=== PATIENT | female | born 1990 | race Caucasian/White ===

== ENCOUNTER 2018-09-17 16:00 | Inpatient (IN) | payer OTHER, SELFPAY ==
[2018-09-17 16:20] VITALS: BMI 25.3
[2018-09-17] MEDS: Lactated Ringers 1,000 ML 50 ML IV (16:35)
[2018-09-17 17:03] LABS: Absolute Lymphocyte Count 1.76 X10^3/ul (0.83-4.51); Basophil# 0.01 X10^3/uL; Basophil% 0.1 % (0-1); Eosinophil# 0.17 X10^3/uL; Eosinophils% 1.5 % (0-5); Hematocrit 36.8 % (37-47); Hemoglobin 12.5 g/dl (12.0-15.0); Lymphocyte # 1.76 X10^3/ul (4.0); Lymphocyte % 15.3 % (19-41); Mean Corpuscular Hgb 31.2 pg (27.0-32.0); Mean Corpuscular Volume 91.8 fL (81-99); Mean Platelet Vol. 10.7 fl (6.2-12.0); Monocyte% 5.2 % (0-10); Neutrophil # 8.97 X10^3/uL (2.7-7.7); Neutrophil % 77.6 % (47-70); Platelet Count 209 K/mm3 (150-450); RBC Distribution Width CV 12.7 % (11.6-14.6); RBC Distribution Width SD 42.9 fl (35.1-43.9); Red Blood Count 4.01 M/mm3 (4.2-5.4); White Blood Count 11.5 K/mm3 (4.4-11.0)
[2018-09-17 17:05] LABS: International Normalized Ratio 0.9; Partial Thromboplast Time 27.5 Seconds (24.1-36.2); Prothrombin Time (Protime)PT. 12.1 SECONDS (11.7-14.9)
[2018-09-17 17:14] LABS: AST(SGOT) 21 U/L (15-37); Alanine Aminotransfer ALT/SGPT 20 U/L (13-56); Creatinine, Serum 0.66 mg/dL (0.55-1.02); EST Glomerular Filtration Rate 110 mL/min (>60); Est Glom Filt Rate - Afr Amer 134 mL/min (>60); Estimated Creatinine Clearance 107.63 ml/min; Uric Acid 4.6 mg/dL (2.6-6.0)
[2018-09-17 17:15] LABS: POSITIVE COUNT NO; POSITIVE DIFFERENTIAL NO; POSITIVE MORPHOLOGY NO
[2018-09-17 18:11] LABS: Protein, Urine (Random) 12.7 mg/dL (<11.9); Protein:Creat Ratio 115 mg/g CRE (0-200)
--- NOTE | 2018-09-17 19:26 | PCM.HP.OB ---
- Problem List (1) Elective induction of labor planned Status: Acute (2) History of depression Status: Acute (3) History of anxiety Status: Acute History Date of Admission: 09/17/18 Final GABRIELLA: 09/21/18 Gestational age: 39 Weeks and 3 Days History of this : This is a 28 year-old, G [1], P [0], at 39 weeks 3 days gestational age by LMP. Presented to office today with complaint of uterine contractions and discomfort. Also complaint of decreased movement. Cervical exam progressed from 4cm to 5cm since yesterday. Patient requesting elective IOL. Allergies cat dander Allergy (Verified 09/17/18 16:29) Itching dog dander Allergy (Verified 09/17/18 16:29) Itching horse dander Allergy (Verified 09/17/18 16:29) Itching tree nut Allergy (Verified 09/17/18 16:29) Itching Apple Allergy (Uncoded 09/17/18 16:29) Itching Carrot Allergy (Uncoded 09/17/18 16:29) Itching Legumes Allergy (Uncoded 09/17/18 16:29) Anaphylaxis Peanuts Allergy (Uncoded 09/17/18 16:29) Anaphylaxis Seasonal Allergies Allergy (Uncoded 09/17/18 16:29) Itching Soybeans Allergy (Uncoded 09/17/18 16:29) Itching Home Medications: Home Medications Albuterol Inhaler [Ventolin Hfa (SP)] 1 puff INHALATION Q4H PRN PRN 09/17/18 Epinephrine [Auvi-Q] 0.3 mg IJ 09/17/18 Omeprazole [Prilosec] 40 mg PO DAILY 09/17/18 Phenazopyridine [Pyridium] 100 mg PO TID 09/17/18 Smoking Status: Former smoker Alcohol: None Heart Tracin, moderate variability, accels, no decels TOCO: Irregular every 3-7 minutes, mild. History Past Pregnancies: Past Pregnancies Delivery Date Name GA/Weeks Outcome Route Weight Infant Gender Labor Length Anesthesia Delivery Location Provider FOB Labs: GBS negative 1hr GCT 88 normal CF negative HIV negative HBsAG negative Rubella Immune RPR negative A positive GC/CT negative Urine tox screen Expected Infant Delivery Method: Spontaneous Vaginal Review of Systems Constitutional: Denies: Chills, Fever, Weight Change HEENT: Denies: Head Aches, Sinus Congestion, Sinus Drainage Cardiovascular: Denies: Chest Pain, Palpitations Respiratory: Denies: Cough, Shortness of breath at rest, Sputum production Gastrointestinal: Reports: Abdominal Pain - Denies RUQ abdominal pain. Complaint of uterine contractions.. Denies: Nausea, Vomiting Genitourinary: Denies: Dysuria Neurological: Denies: Blurred vision, Focal weakness, Numbness, Tingling Psychiatric: Denies: Anxiety, Depression, Homicidal Ideations, Suicidal Ideations Physical Exam General: Alert, Oriented x3, Cooperative HEENT: Atraumatic, Normocephalic Cardiovascular: Regular rate, Regular Rhythm, No murmurs Lungs: Clear to auscultation, Normal air movement, No rhonchi, No wheeze Abdomen: Bowel Sounds Present, Non Tender, Gravid Extremities:: No edema Neurological: Deep Tendon Reflexes 2+/4 and Symmetrical. Negative for: Clonus Estimated gestational size: Appropriate for gestational size Presentation: Cephalic Cervix Dilation (cm): 5 - Cervical exam done in office today Station: -1 Effacement (%): 60 Assessment/Plan All Active Problems Elective induction of labor planned (Acute) History of depression (Acute) History of anxiety (Acute) This is a 28 year-old, G [1], P [0], at 39 weeks gestational age. A: Elective Induction of Labor at term Category 1 FHT P: 1) Admit to L&D. IV. Routine labs. Pre-e labs and urine p/c ratio due to mildly elevated BP 2) Unsure about pain management, would like to avoid epidural but ok if needed 3) Pitocin per policy 4) Continuous EFM 5) notified of patient status and admission.
[2018-09-17] MEDS: Oxytocin 30 units/NS 500 ml 30 UNITS/500 ML IV.SOLN IV (19:28)
[2018-09-17] MEDS: 0.9% Saline Lock 10 ML Syringe IV (23:36)
[2018-09-18] MEDS: Lactated Ringers 1,000 ML 50 ML IV ×2 (06:00→10:29)
[2018-09-18] MEDS: fentaNYL-bupivacaine (epidural) 100 ML BAG EPIDURAL (06:32)
--- NOTE | 2018-09-18 07:05 | PN.OBGYN_ITS ---
Patient Problems: Active and Suspected Problems Elective induction of labor planned (Acute) History of depression (Acute) History of anxiety (Acute) Subjective: Became increasingly painful with contractions after AROM. Requested epidural for pain management. at bedside. Objective: FHT 145, moderate variability, accel, no decel, Category 1 TOCO: every 2-3 minutes, strong Cervix: 7cm/90%/+1 AROM for clear fluid - Physical Exam Weight: 147 lb 7.828 oz Body Mass Index (BMI) 25.3 Intake and Output for Last 24 Hours 09/16/18 09/17/18 09/18/18 23:59 23:59 23:59 Intake Total 1676 / 1676 Output Total 900 / 900 Balance 776 / 776 Laboratory Tests Past 24 Hrs 09/17/18 09/17/18 09/17/18 16:35 16:35 16:35 WBC 11.5 H RBC 4.01 L Hgb 12.5 Hct 36.8 L MCV 91.8 MCH 31.2 MCHC 34.0 RDW 12.7 RDW Differential 42.9 Plt Count 209 MPV 10.7 Immature Gran % (Auto) 0.300 Neut % (Auto) 77.6 H Lymph % (Auto) 15.3 L [place] % (Auto) 5.2 Eos % (Auto) 1.5 Baso % (Auto) 0.1 Absolute Neuts (auto) 9.0 H Absolute Lymphs (auto) 1.76 Total Counted Not Reportable PT 12.1 INR 0.9 APTT 27.5 Creatinine Estim Creat Clear Calc Est GFR (MDRD) Af Amer Est GFR (MDRD) Non-Af Uric Acid AST ALT U Random Total Protein Urine Creatinine Protein/Creatinin Ratio Blood Type A POSITIVE Antibody Screen NEGATIVE 09/17/18 09/17/18 16:35 17:40 WBC RBC Hgb Hct MCV MCH MCHC RDW RDW Differential Plt Count MPV Immature Gran % (Auto) Neut % (Auto) Lymph % (Auto) [place] % (Auto) Eos % (Auto) Baso % (Auto) Absolute Neuts (auto) Absolute Lymphs (auto) Total Counted PT INR APTT Creatinine 0.66 Estim Creat Clear Calc 107.63 Est GFR (MDRD) Af Amer 134 Est GFR (MDRD) Non-Af 110 Uric Acid 4.6 AST 21 ALT 20 U Random Total Protein 12.7 H Urine Creatinine 110.00 Protein/Creatinin Ratio 115 Blood Type Antibody Screen Medical Necessity - Tobacco Use Smoking Status: Former smoker Assessment/Plan All Active Problems Elective induction of labor planned (Acute) History of depression (Acute) History of anxiety (Acute) A:Active Labor, progressing Category 1 FHT P: 1) Continue active management. Pitocin at 5mu's. Decreased from 10mu's prior to epidural placement. 2) Epidural for pain relief, effective 3) notified of patient status.
[2018-09-18] MEDS: fentaNYL 100 MCG/2 ML Ampul IV (10:29)
[2018-09-18] MEDS: Oxytocin 30 units/NS 500 ml 30 UNITS/500 ML IV.SOLN 334 UNITS IV (11:38)
--- NOTE | 2018-09-18 12:07 | PCM.OPRPT ---
Problem List (1) Elective induction of labor planned Status: Acute (2) History of depression Status: Acute (3) History of anxiety Status: Acute (4) Vaginal delivery Status: Acute (5) First degree perineal laceration Status: Acute Vaginal Delivery Maternal Presentation: Elective Induction Method of Induction: Pitocin Amniotic Membrane Rupture Type: Artificial Amniotic Fluid Description: Clear Final GABRIELLA: 09/21/18 Final GABRIELLA Source: LMP Gestational age: 39 Weeks and 4 Days Date of Procedure: 09/18/18 Pre-Operative Diagnosis: Elective Induction of Labor Post-Operative Diagnosis: at term Surgery/ Procedure Performed: Spontaneous Vaginal Delivery Type of Anesthesia: Epidural, Local with 1% lidocaine Description of Procedure: Progressed to complete with urge to push. of viable male over 1st degree perineal laceration. APGARS 8,9 with weight pending. head delivered and body forthcoming, CAN x1 and delivered through. Placed on maternal abdomen skin to skin. Spontaneous cry, mouth and nares suctioned for secretions. Pitocin started for active third stage management. Placenta delivered with maternal effort, intact, 3 vessel cord. Fundus massaged and firm. Perineum inspected and revealed 1st degree perineal laceration. Repaired with 3.0 vicryl and 1% Lidocaine, well approximated. Hemostasis achieved, EBL 300ml. Planning to breastfeed. Mom and baby stable. Family bonding well. notified of delivery. Presentation: Vertex Placental Delivery Description: Spontaneous Placenta Disposition: [facility] Cord Vessel Description: 3 Vessels Cord Entanglement: Around neck x 1, loose Estimated Blood Loss: 200 ml Infant A gender: Male Episiotomy Description: None Laceration: Perineal Extension/lac, 1st degree Medications given after delivery: IV Pitocin
[2018-09-18] MEDS: Oxytocin 30 units/NS 500 ml 30 UNITS/500 ML IV.SOLN 167 UNITS IV (12:08)
[2018-09-18] MEDS: Ibuprofen 600 MG Tablet PO (16:52)
[2018-09-18 17:44] VITALS: BP 122/72; PULSE 86; RESP 16; TEMP 37.3; O2SAT 99
[2018-09-18 20:48] VITALS: BP 134/77; PULSE 87; RESP 18; TEMP 36.7
[2018-09-19] MEDS: Senna/Docusate Sodium 1 Tablet PO (00:39)
[2018-09-19] MEDS: Ibuprofen 600 MG Tablet PO ×3 (00:39→21:57)
[2018-09-19 00:41] VITALS: BP 115/73; PULSE 81; RESP 18; TEMP 36.7
[2018-09-19 05:25] VITALS: BP 137/88; PULSE 83; RESP 18; TEMP 36.5
[2018-09-19 05:50] LABS: Hematocrit 34.5 % (37-47); Hemoglobin 11.5 g/dl (12.0-15.0); Mean Corp Hgb Conc 33.3 g/gl (32-36); Mean Corpuscular Hgb 30.9 pg (27.0-32.0); Mean Corpuscular Volume 92.7 fL (81-99); Mean Platelet Vol. 10.4 fl (6.2-12.0); Platelet Count 188 K/mm3 (150-450); RBC Distribution Width CV 12.9 % (11.6-14.6); RBC Distribution Width SD 43.7 fl (35.1-43.9); Red Blood Count 3.72 M/mm3 (4.2-5.4); White Blood Count 14.3 K/mm3 (4.4-11.0)
[2018-09-19 05:51] LABS: Scan Indicated on CBC? Y/N NO
--- NOTE | 2018-09-19 08:19 | PCM.PN.OB ---
Patient Problems: Active and Suspected Problems Elective induction of labor planned (Acute) History of depression (Acute) History of anxiety (Acute) Vaginal delivery (Acute) First degree perineal laceration (Acute) Subjective: Patient sitting up in bed, reporting no issues overnight. Denies HOLT, denies scotoma, denies dizziness. Patient reports mild tailbone pain but feels that heating pack to tailbone helps with her symptoms. Reports minimal issue with latching the baby - notes minimal nipple pain. Objective: VSS, Afebrile - see nurse's notes Nipples without cracks or blisters, no ecchymoses Abdomen NT x 4 quadrants, FF midline 2FB below umbilicus +2/4 reflexes in LE, no edema noted, negative calf tenderness to palpation scant rubra lochia, perineum well-approximated - Physical Exam General: Alert, Oriented x3, Cooperative HEENT: Atraumatic, Normocephalic Lungs: Normal air movement Cardiovascular: Regular rate, No murmurs Abdomen: Soft, Non Tender Extremities: No edema, Capillary Refill Less than 3 Seconds Skin: No rashes, No breakdown Musculoskeletal: No Tenderness to Palpation of Joints or Extremities Neurological: Cranial nerves II-XII grossly intact Psych/Mental Status: Normal Affect, Appropriate Vital Signs Temp Pulse Resp BP Pulse Ox 97.7 F L 83 18 137/88 H 99 09/19/18 05:25 09/19/18 05:25 09/19/18 05:25 09/19/18 05:25 09/18/18 17:44 Oxygen Delivery Method Room Air Weight: 147 lb 7.828 oz Body Mass Index (BMI) 25.3 Intake and Output for Last 24 Hours 09/17/18 09/18/18 09/19/18 23:59 23:59 23:59 Intake Total 4684 / 4684 Output Total 2650 / 2650 Balance 2033 / 2033 Laboratory Tests Past 24 Hrs 09/19/18 05:40 WBC 14.3 H RBC 3.72 L Hgb 11.5 L Hct 34.5 L MCV 92.7 MCH 30.9 MCHC 33.3 RDW 12.9 RDW Differential 43.7 Plt Count 188 MPV 10.4 Medical Necessity - Tobacco Use Smoking Status: Former smoker Assessment/Plan All Active Problems Elective induction of labor planned (Acute) History of depression (Acute) History of anxiety (Acute) Vaginal delivery (Acute) First degree perineal laceration (Acute) 28 y/o s/p , PPD #1, Normal PP Course P: 1) Continue , consultation today 2) Continue present orders 3) Anticipate discharge to home tomorrow Angeli REYES
[2018-09-19 08:36] VITALS: BP 132/86; PULSE 60; RESP 16; TEMP 36.4
[2018-09-19] MEDS: Pantoprazole Sodium 40 MG Tablet PO (08:57)
[2018-09-19 14:00] VITALS: BP 125/93; PULSE 60; RESP 16; TEMP 36.6
[2018-09-19] MEDS: Acetaminophen 500 MG Tablet 1000 MG PO (17:27)
[2018-09-19 17:28] VITALS: BP 128/82; PULSE 64; RESP 16; TEMP 36.4
[2018-09-19 20:10] VITALS: BP 128/83; PULSE 80; RESP 16; TEMP 36.6
[2018-09-20 01:43] VITALS: BP 132/86; PULSE 81; RESP 16; TEMP 36.8
[2018-09-20] MEDS: Pantoprazole Sodium 40 MG Tablet PO (08:20)
[2018-09-20 08:21] VITALS: BP 134/85; PULSE 81; RESP 18; TEMP 36.9; O2SAT 98
[2018-09-20] MEDS: Ibuprofen 600 MG Tablet PO (08:53)
--- NOTE | 2018-09-20 09:09 | DCINST_ITS ---
Discharge Diet: No Restrictions Discharge Activity: Return to Normal Activity, May not drive while taking narcotic pain medications., May Shower May resume sexual activity in: 4-6 weeks Additional Activity Instructions:: Nothing in the vagina for 4-6 weeks. You may return to work/school in 6 weeks. Call your doctor if your incision/area has: Continuous Slow Oozing, Sudden Increased Bleeding, Increased Pain/ Swelling, Increased Redness, Foul Smelling Discharge Call your doctor if you observe: Fever of 101 or Higher, Inability to urinate, Inability to have a bowel movement, Using more than one pad per hour Additional Instructions: If you experience any of the following, contact your healthcare provider. * Bleeding that soaks a pad every hour for 2 hours * Fever 100.4 or higher * Unrelieved incision or abdominal pain * Swelling, redness, discharge or bleeding from your incision or episiotomy site * Your incision begins to separate * Problems urinating (including inability to urinate or burning while urinating). * Visual changes * Severe headache * Flu-like symptoms * Pain or redness in one of both of your breasts * Pain, warmth, tenderness or swelling in your legs, especially the calf area * Frequent nausea and vomiting * Symptoms of depression or anxiety If you experience any of the following, call 911 or go to the nearest Emergency Room. * Chest pain * Problems breathing * Seizure activity * Partial or complete paralysis of a body part, slurred speech, weakness or drooping of the face, or a sudden inability to walk or hold your balance Allergies/Adverse Reactions: Allergies cat dander Allergy (Verified 09/17/18 16:29) Itching dog dander Allergy (Verified 09/17/18 16:29) Itching horse dander Allergy (Verified 09/17/18 16:29) Itching tree nut Allergy (Verified 09/17/18 16:29) Itching Apple Allergy (Uncoded 09/17/18 16:29) Itching Carrot Allergy (Uncoded 09/17/18 16:29) Itching Legumes Allergy (Uncoded 09/17/18 16:29) Anaphylaxis Peanuts Allergy (Uncoded 09/17/18 16:29) Anaphylaxis Seasonal Allergies Allergy (Uncoded 09/17/18 16:29) Itching Soybeans Allergy (Uncoded 09/17/18 16:29) Itching Medications to take at Discharge Albuterol Inhaler [Ventolin Hfa (SP)] 1 puff INHALATION Q4H PRN PRN 09/17/18 Epinephrine [Auvi-Q] 0.3 mg IJ 09/17/18 Omeprazole [Prilosec] 40 mg PO DAILY 09/17/18 Phenazopyridine [Pyridium] 100 mg PO TID 09/17/18 Please Follow Up With: Jackie Blount CNM When: Call to make an appointment with your provider in 2 weeks and 6 weeks . Primary Care Physician: Johanna Abreu,Out of [Primary Care Provider] - Test Results: Test results from this visit will be discussed in further detail at your follow- up appointment, if applicable. Proposed Discharge Date: 09/20/18
--- NOTE | 2018-09-20 09:17 | PN.OBGYN_ITS ---
Patient Problems: Active and Suspected Problems Elective induction of labor planned (Acute) History of depression (Acute) History of anxiety (Acute) Vaginal delivery (Acute) First degree perineal laceration (Acute) Subjective: Patient recently exited shower, reports no issues at this time. Nipples feeling slightly sore, reports that baby breastfeeds easier and more often on Rt. side than Lt. side. Patient reports some nipple soreness. She plans to see beauty consultant this morning and has been applying cool pads to nipples after feedings. Patient reports that bleeding has decreased, reports that her tailbone pain has almost completely resolved. Denies HOLT, scotoma or dizziness. She desires discharge to home today. Objective: VSS, Afebrile Nipples without blisters, a few small cracks on Rt>Lt nipple and mild erythema. Nipples bilaterally everted. Abdomen NT x 4 quadrants, FF midline 3FB below umbilicus +2/4 reflexes in LE, no edema noted, negative calf tenderness to palpation scant rubra lochia, perineum well-approximated - Physical Exam General: Alert, Oriented x3, Cooperative HEENT: Atraumatic, Normocephalic Neck: Supple Lungs: Normal air movement Cardiovascular: Regular rate, Regular Rhythm Abdomen: Soft, Non Tender Extremities: No edema, Capillary Refill Less than 3 Seconds Skin: No rashes, No breakdown Musculoskeletal: No Tenderness to Palpation of Joints or Extremities Neurological: Cranial nerves II-XII grossly intact, Deep Tendon Reflexes 2+/4 and Symmetrical Psych/Mental Status: Normal Affect, Appropriate Vital Signs Temp Pulse Resp BP Pulse Ox 98.5 F 81 18 134/85 H 98 09/20/18 08:21 09/20/18 08:21 09/20/18 08:21 09/20/18 08:21 09/20/18 08:21 Oxygen Delivery Method Room Air Weight: 147 lb 7.828 oz Body Mass Index (BMI) 25.3 Intake and Output for Last 24 Hours 09/18/18 09/19/18 09/20/18 23:59 23:59 23:59 Intake Total 4684 / 4684 1500 / 1500 Output Total 2650 / 2650 Balance 2033 / 2033 1500 / 1500 Medical Necessity - Tobacco Use Smoking Status: Former smoker Assessment/Plan All Active Problems Elective induction of labor planned (Acute) History of depression (Acute) History of anxiety (Acute) Vaginal delivery (Acute) First degree perineal laceration (Acute) 28 y/o s/p , PPD #2, Normal PP Course P: 1) Discharge patient to home 2) PP teaching and anticipatory PP guidance reviewed 3) Patient to follow-up as scheduled at 2 and 6 weeks PP at [facility] Angeli REYES
== END 2018-09-20 10:55 | disposition home or self-care (01) | DRG 807 ==
PROVIDERS: Advanced Practice Midwife; Admitting Provider Obstetrics & Gynecology; Referring Provider Obstetrics & Gynecology; Visit Provider Obstetrics & Gynecology
DX: O69.82X0 Labor and delivery complicated by other cord entanglement, without compression, not applicable or unspecified (principal); Z37.0 Single live birth; Z3A.39 39 weeks gestation of pregnancy; Z87.891 Personal history of nicotine dependence; O70.0 First degree perineal laceration during delivery
CPT/HCPCS: 59025; 59050; 82565; 82570; 84156; 84450; 84460; 84550; 85025; 85027; 85610; 85730; 86850; 86900; 99218; J7120; A4216; G0378; J3490

== ENCOUNTER 2018-09-28 14:07 | Outpatient (CLI) | payer OTHER, SELFPAY ==
[2018-09-28] VITALS (7 sets, daily range): BP systolic 146–157; BP diastolic 84–101; PULSE 64–75; RESP 18; TEMP 37.4
[2018-09-28 15:15] LABS: Hematocrit 35.9 % (37-47); Hemoglobin 11.9 g/dl (12.0-15.0); Mean Corp Hgb Conc 33.1 g/gl (32-36); Mean Corpuscular Hgb 30.7 pg (27.0-32.0); Mean Corpuscular Volume 92.5 fL (81-99); Mean Platelet Vol. 9.4 fl (6.2-12.0); Platelet Count 301 K/mm3 (150-450); RBC Distribution Width CV 12.6 % (11.6-14.6); RBC Distribution Width SD 42.5 fl (35.1-43.9); Red Blood Count 3.88 M/mm3 (4.2-5.4)
[2018-09-28 15:16] LABS: Scan Indicated on CBC? Y/N NO
[2018-09-28 15:25] LABS: Prothrombin Time (Protime)PT. 13.2 SECONDS (11.7-14.9)
[2018-09-28 15:26] LABS: Partial Thromboplast Time 28.5 Seconds (24.1-36.2)
[2018-09-28 15:43] LABS: Protein, Urine (Random) 19.6 mg/dL (<11.9); Protein:Creat Ratio 117 mg/g CRE (0-200)
[2018-09-28 15:46] LABS: Creatinine, Serum 0.67 mg/dL (0.55-1.02); EST Glomerular Filtration Rate 109 mL/min (>60)
[2018-09-28 15:47] LABS: AST(SGOT) 25 U/L (15-37); Alanine Aminotransfer ALT/SGPT 38 U/L (13-56); Est Glom Filt Rate - Afr Amer 132 mL/min (>60); Uric Acid 4.3 mg/dL (2.6-6.0)
--- NOTE | 2018-09-28 15:55 | NURSING ---
obs pt with c/o intermittent headaches x 1 week which she rates a 1 in pain scale.
--- NOTE | 2018-09-28 15:56 | NURSING ---
Pt reports she has hx anxiety. Has resumed Celexa daily starting 2 days ago.
[2018-09-28] MEDS: Labetalol 100 MG Tablet PO (16:29)
--- NOTE | 2018-09-30 07:00 | OB.TRI.NOTE ---
- Problem List (1) hypertension Status: Acute History of Present Illness Date of Service: 09/28/18 Was patient seen by the physician?: No Reason For Visit: RULE OUT POST PRE ECLAMPSIA Final GABRIELLA Source: LMP History of Present Illness: Pt is over 1 week out for . She had a mild HOLT at home that was off-and-on, so she took her BP. Her BP at home was mild range. HOLT resolved with Ibuprofen. Currently no HLOT, vision changes, upper abd pain, vomiting. Presents for BP check. Allergies cat dander Allergy (Verified 09/17/18 16:29) Itching dog dander Allergy (Verified 09/17/18 16:29) Itching horse dander Allergy (Verified 09/17/18 16:29) Itching tree nut Allergy (Verified 09/17/18 16:29) Itching Apple Allergy (Uncoded 09/17/18 16:29) Itching Carrot Allergy (Uncoded 09/17/18 16:29) Itching Legumes Allergy (Uncoded 09/17/18 16:29) Anaphylaxis Peanuts Allergy (Uncoded 09/17/18 16:29) Anaphylaxis Seasonal Allergies Allergy (Uncoded 09/17/18 16:29) Itching Soybeans Allergy (Uncoded 09/17/18 16:29) Itching Laboratory Studies: Laboratory Tests 09/28/18 09/28/18 09/28/18 Range/Units 15:20 15:00 15:00 WBC (4.4-11.0) K/mm3 RBC (4.2-5.4) M/mm3 Hgb (12.0-15.0) g/dl Hct (37-47) % MCV (81-99) fL MCH (27.0-32.0) pg MCHC (32-36) g/gl RDW (11.6-14.6) % RDW Differential (35.1-43.9) fl Plt Count (150-450) K/mm3 MPV (6.2-12.0) fl PT 13.2 (11.7-14.9) SECONDS INR 1.0 APTT 28.5 (24.1-36.2) Seconds Creatinine 0.67 (0.55-1.02) mg/dL Est GFR (MDRD) Af Amer 132 (>60) mL/min Est GFR (MDRD) Non-Af 109 (>60) mL/min Uric Acid 4.3 (2.6-6.0) mg/dL AST 25 (15-37) U/L ALT 38 (13-56) U/L U Random Total Protein 19.6 H (<11.9) mg/dL Urine Creatinine 168.00 (NO RANGE EST.) mg/dL Protein/Creatinin Ratio 117 (0-200) mg/g CRE 09/28/18 Range/Units 15:00 WBC 7.0 (4.4-11.0) K/mm3 RBC 3.88 L (4.2-5.4) M/mm3 Hgb 11.9 L (12.0-15.0) g/dl Hct 35.9 L (37-47) % MCV 92.5 (81-99) fL MCH 30.7 (27.0-32.0) pg MCHC 33.1 (32-36) g/gl RDW 12.6 (11.6-14.6) % RDW Differential 42.5 (35.1-43.9) fl Plt Count 301 (150-450) K/mm3 MPV 9.4 (6.2-12.0) fl PT (11.7-14.9) SECONDS INR APTT (24.1-36.2) Seconds Creatinine (0.55-1.02) mg/dL Est GFR (MDRD) Af Amer (>60) mL/min Est GFR (MDRD) Non-Af (>60) mL/min Uric Acid (2.6-6.0) mg/dL AST (15-37) U/L ALT (13-56) U/L U Random Total Protein (<11.9) mg/dL Urine Creatinine (NO RANGE EST.) mg/dL Protein/Creatinin Ratio (0-200) mg/g CRE Physical Exam Vitals: Vital Signs Temp Pulse Resp BP 99.3 F H 75 18 153/101 H 09/28/18 14:15 09/28/18 15:18 09/28/18 15:18 09/28/18 15:18 Impression/Plan - Persistent mild range BP's. Labetalol 100 mg BID started - No pre-e symptoms currently - Pre-e labs WNL - D/c home with f/u in the office the following day
--- NOTE | 2018-10-01 10:29 | NURSING ---
Late note: On 09/28/[address] Lofton was notified of pt's assessment and serial BPs. Orders received to give Labetalol 100 mg po x1. Prescription sent to [facility] pharmacy electronically for Labetalol 100 mg BID per . Instruct pt to follow up in office Saturday09/29/2018 for BP check.
== END 2018-09-28 16:45 | disposition home or self-care (01) ==
LOC: WPOUT 14:13 → WP 14:14
PROVIDERS: Visit Provider Obstetrics & Gynecology
DX: O16.5 Unspecified maternal hypertension, complicating the puerperium (principal)
CPT/HCPCS: 82565; 82570; 84156; 84450; 84460; 84550; 85027; 85610; 85730; 99218; G0378